=== PATIENT | male | born 1975 | race Caucasian/White ===

== ENCOUNTER 2018-06-21 17:02 | Emergency (ER) | payer BC ==
[2018-06-21] MEDS ORDERED: Benzonatate 100 MG Cap PO ONE (17:03)
[2018-06-21 19:12] VITALS: BP 132/74
--- NOTE | 2018-06-21 19:33 | EDM.PDOC ---
ED HPI GENERAL MEDICAL PROBLEM - General Chief Complaint: ENT Problem Stated Complaint: 105 TEMP Time Seen by Provider: 06/21/18 19:29 Source of Information: Reports: Patient, RN Notes Reviewed History Limitations: Reports: No Limitations - History of Present Illness INITIAL COMMENTS - FREE TEXT/NARRATIVE: fever since yesterday up to 105/ 106 relieved with tylenol and ibuprofen, cough , no sorethroat or ear pain, congested, no nausea or vomiting. Has not had flu shot this year. No other medical hx. No home medications. Generalized Pain Score (Numeric/FACES): 5 - Related Data Allergies Allergy/AdvReac Type Severity Reaction Status Date / Time No Known Allergies Allergy Verified 06/21/18 17:29 Home Meds: Home Meds . [No Known Home Meds] 06/21/18 [History] Past Medical History HEENT History: Reports: Impaired Vision Cardiovascular History: Reports: None Respiratory History: Reports: None Gastrointestinal History: Reports: Other (See Below) Other Gastrointestinal History: vomiting blood Genitourinary History: Reports: None Musculoskeletal History: Reports: Other (See Below) Other Musculoskeletal History: knee pain Neurological History: Reports: None Psychiatric History: Reports: None Endocrine/Metabolic History: Reports: None Hematologic History: Reports: None Immunologic History: Reports: None Oncologic (Cancer) History: Reports: None Dermatologic History: Reports: None - Infectious Disease History Infectious Disease History: Reports: None Social & Family History - Family History Family Medical History: Noncontributory - Tobacco Use Smoking Status *Q: Never Smoker Second Hand Smoke Exposure: No - Caffeine Use Caffeine Use: Reports: Coffee - Recreational Drug Use Recreational Drug Use: No ED ROS GENERAL - Review of Systems Review Of Systems: See Below Constitutional: Reports: Fever, Chills, Decreased Appetite HEENT: Reports: Throat Pain. Denies: Ear Pain, Rhinitis, Vertigo Respiratory: Reports: Cough, Sputum (green). Denies: Shortness of Breath Cardiovascular: Reports: No Symptoms GI/Abdominal: Reports: No Symptoms. Denies: Diarrhea, Nausea, Vomiting Musculoskeletal: Reports: No Symptoms Skin: Reports: No Symptoms Neurological: Reports: No Symptoms Psychiatric: Reports: No Symptoms ED EXAM, GENERAL - Physical Exam Exam: See Below Exam Limited By: Uncooperative General Appearance: Mild Distress, Obese Eye Exam: Bilateral Eye: EOMI, PERRL Ears: Normal External Exam, Hearing Grossly Normal, Normal TMs Nose: Normal Inspection Throat/Mouth: Normal Inspection, Normal Lips Head: Atraumatic, Normocephalic Neck: Normal Inspection Respiratory/Chest: No Respiratory Distress, Decreased Breath Sounds, Other ( ocassional cough, increased with deep breathing.) Cardiovascular: Normal Peripheral Pulses, Regular Rate, Rhythm, No Edema GI/Abdominal: Normal Bowel Sounds Back Exam: Normal Inspection, Full Range of Motion Extremities: Normal Inspection, Normal Range of Motion Neurological: Alert, Oriented, Normal Cognition Psychiatric: Normal Affect, Normal Mood Skin Exam: Warm, Dry, Intact, Diaphoretic Course - Vital Signs Last Recorded V/S: Last Vital Signs Temp 99.0 F 06/21/18 21:00 Pulse 108 H 06/21/18 19:10 Resp 18 06/21/18 19:10 BP 132/74 06/21/18 19:10 Pulse Ox 96 06/21/18 19:10 - Orders/Labs/Meds Orders: Active Orders 24 hr Category Date Time Status RT Aerosol Therapy [RC] ASDIRECTED Care 06/21/18 19:49 Active CULTURE BLOOD [BC] Stat Lab 06/21/18 19:47 Received CULTURE STREP A CONFIRMATION [] Stat Lab 06/21/18 17:28 Results STREP SCRN A RAPID W CULT CONF [] Stat Lab 06/21/18 17:28 Results Labs: Laboratory Tests 06/21/18 06/21/18 06/21/18 Range/Units 19:47 19:47 19:47 WBC 17.2 H (5.0-10.0) 10^3/uL RBC 5.25 (4.6-6.2) 10^6/uL Hgb 15.6 (14.0-18.0) g/dL Hct 46.0 (40.0-54.0) % MCV 87.6 (80-100) fL MCH 29.7 (27.0-34.0) pg MCHC 33.9 (33.0-35.0) g/dL Plt Count 238 (150-450) 10^3/uL Neut % (Auto) 82.6 H (42.2-75.2) % Lymph % (Auto) 10.3 L (20.5-50.1) % [place] % (Auto) 6.7 (2-8) % Eos % (Auto) 0.2 L (1.0-3.0) % Baso % (Auto) 0.2 (0.0-1.0) % Sodium 132 L (135-145) mmol/L Potassium 3.6 (3.6-5.0) mmol/L Chloride 96 L (101-111) mmol/L Carbon Dioxide 22.0 (21.0-31.0) mmol/L Anion Gap 17.6 BUN 9 (7-18) mg/dL Creatinine 1.0 (0.6-1.3) mg/dL Est Cr Clr Drug Dosing 102.39 mL/min Estimated GFR (MDRD) > 60 BUN/Creatinine Ratio 9.00 Glucose 212 H (74-105) mg/dL Lactic Acid 1.4 (0.5-2.2) mmol/L Calcium 8.8 (8.4-10.2) mg/dl Total Bilirubin 0.9 (0.2-1.0) mg/dL AST 22 (10-42) IU/L ALT 28 (10-60) IU/L Alkaline Phosphatase 65 (42-121) IU/L Total Protein 8.2 (6.7-8.2) g/dl Albumin 3.6 (3.2-5.5) g/dl Globulin 4.6 Albumin/Globulin Ratio 0.78 Meds: Medications Discontinued Medications Generic Name Dose Route Start Last Admin Trade Name Freq PRN Reason Stop Dose Admin Albuterol/Ipratropium 3 ml 06/21/18 19:48 06/21/18 19:54 Duoneb 3.0-0.5 Mg/3 Ml NEB 06/21/18 19:49 3 ml ONETIME ONE Administration Benzonatate Confirm 06/21/18 20:59 06/21/18 21:20 Tessalon Perles Administered 06/21/18 21:00 Not Given Dose 400 mg .ROUTE .STK-MED ONE Ceftriaxone Sodium 1 gm/ 0 gm 06/21/18 20:50 06/21/18 20:58 Lidocaine HCl 2.1 ml IM 06/21/18 20:51 2.1 inj ONETIME ONE Administration Ibuprofen 600 mg 06/21/18 20:23 06/21/18 20:27 Motrin PO 06/21/18 20:24 600 mg ONETIME ONE Administration Levofloxacin 500 mg 06/21/18 20:48 06/21/18 20:58 Levaquin PO 06/21/18 20:49 500 mg ONETIME ONE Administration Departure - Departure Time of Disposition: 20:52 Disposition: Home, Self-Care 01 Condition: Good Clinical Impression: Influenza B Pneumonia Qualifiers: Pneumonia type: due to unspecified organism Laterality: right Lung location: upper lobe of lung Qualified Code(s): J18.1 - Lobar pneumonia, unspecified organism - Discharge Information *PRESCRIPTION DRUG MONITORING PROGRAM REVIEWED*: Not Applicable *COPY OF PRESCRIPTION DRUG MONITORING REPORT IN PATIENT POLLY: Not Applicable Instructions: Influenza, Adult, Community-Acquired Pneumonia, Adult, Easy-to- Read Forms: ED Department Discharge Additional Instructions: levaquin 500mg daily robitussin or muccinex per package to loosen secretion tesselon perles 200mg every 8 hours as needed for cough hydrate tylenol or ibuprofen every 4 hours as needed for fever/ discomfort recheck chest xray one month to ensure clearing of pneumonia urgent follow up if fever uncontrolled or difficulty breathing - My Orders Last 24 Hours: My Active Orders 06/21/18 19:47 CULTURE BLOOD [BC] Stat 06/21/18 19:49 RT Aerosol Therapy [RC] ASDIRECTED - Assessment/Plan Last 24 Hours: My Active Orders 06/21/18 19:47 CULTURE BLOOD [BC] Stat 06/21/18 19:49 RT Aerosol Therapy [RC] ASDIRECTED
[2018-06-21] MEDS ORDERED: Albuterol/Ipratropium 3.0-0.5 MG/3 ML Neb Soln NEB ONE (19:48)
[2018-06-21 20:21] LABS: ANION GAP 17.6; CHLORIDE,CL 96 mmol/L (101-111); SODIUM,NA 132 mmol/L (135-145)
[2018-06-21] MEDS ORDERED: Ibuprofen 600 MG Tab PO ONE (20:23)
[2018-06-21] MEDS ORDERED: Levofloxacin 500 MG Tab PO ONE (20:48)
[2018-06-21] MEDS ORDERED: cefTRIAXone 1 GM, Lidocaine 1% 2.1 ML IM ONE ×2 (20:50)
[2018-06-21] MEDS ORDERED: Benzonatate 100 MG Cap ONE (20:59)
== END 2018-06-21 21:24 | disposition home or self-care (01) ==
LOC: DL.ED 17:02
DX: J10.08 Influenza due to other identified influenza virus with other specified pneumonia (principal); J18.1 Lobar pneumonia, unspecified organism
CPT/HCPCS: 36415; 71046; 80053; 83605; 85025; 87040; 87081; 87430; 87804; 96372; 99284; A9270; J0696; J2001; J7620-GY

== ENCOUNTER 2022-02-12 13:25 | Emergency (ER) | payer OTHER ==
[2022-02-12 13:41] VITALS: BP 142/92; PULSE 123
[2022-02-12 14:26] LABS: ANION GAP 19.8 mEq/L (7-13)
[2022-02-12] MEDS ORDERED: Iopamidol 612 MG/ML 100 ML Bottle IVPUSH ONE (14:43)
[2022-02-12] MEDS ORDERED: Sodium Chloride 0.9% 10 ML Syringe FLUSH PRN (14:45)
[2022-02-12] MEDS ORDERED: HYDROmorphone 0.5 MG/0.5 ML Syringe IVPUSH ONE (16:24)
[2022-02-12] MEDS ORDERED: Ondansetron 4 MG/2 ML SDV IVPUSH ONE (16:24)
[2022-02-12] MEDS ORDERED: Piperacillin/Tazobactam 4.5 GM in Sodium Chloride 0.9% 100 ML IV ONE (20:01)
[2022-02-12] MEDS ORDERED: HYDROmorphone 1 MG/ML Syringe ONE (20:50)
[2022-02-12] MEDS ORDERED: HYDROmorphone 1 MG/ML Syringe IVPUSH ONE (20:50)
== END 2022-02-12 21:06 ==
LOC: DL.ED 13:25
DX: K66.1 Hemoperitoneum (principal); K68.9 Other disorders of retroperitoneum
CPT/HCPCS: 36415; 74177; 80053; 81001; 83605; 85025; 87040; 94762; 96365; 96375; 96376; 99285; J1170; J2405; J2543; J3490; Q9967

== ENCOUNTER 2022-04-09 08:00 | Emergency (ER) | payer OTHER ==
[2022-04-09 08:23] VITALS: BP 130/83; PULSE 111
[2022-04-09 08:56] LABS: ANION GAP 16.6 mEq/L (7-13)
[2022-04-09] MEDS ORDERED: Sodium Chloride 0.9% 1,000 ML IV ONE (09:09)
[2022-04-09 10:21] LABS: CORONAVIRUS COVID-19 NAA NEGATIVE (NEGATIVE); RESPIRATORY SYNCYTIAL VIR NAA NEGATIVE (NEGATIVE)
[2022-04-09] MEDS ORDERED: Ondansetron 4 MG/2 ML SDV IVPUSH ONE (15:23)
[2022-04-09] MEDS ORDERED: HYDROmorphone 0.5 MG/0.5 ML Syringe IVPUSH ONE (15:23)
== END 2022-04-09 15:52 | disposition home or self-care (01) ==
LOC: DL.ED 08:00
DX: I82.403 Acute embolism and thrombosis of unspecified deep veins of lower extremity, bilateral (principal); Z79.899 Other long term (current) drug therapy; Z20.822 Contact with and (suspected) exposure to COVID-19
CPT/HCPCS: 0241U; 36415; 80053; 82947; 83605; 83880; 85025; 85379; 85610; 85651; 86140; 87040; 93970; 96361; 96374; 96375; 99285; J1170; J2405; J7030

== ENCOUNTER 2023-05-23 15:53 | Emergency (ER) | payer OTHER ==
[2023-05-23 16:20] VITALS: BP 135/85; PULSE 71
[2023-05-23] MEDS: Sodium Chloride 0.9% 1,000 ML IV ONE (16:53)
[2023-05-23] MEDS: Ondansetron 4 MG/2 ML SDV IVPUSH ONE (16:53)
[2023-05-23] MEDS: Sodium Chloride 0.9% 10 ML Syringe FLUSH PRN (16:53)
[2023-05-23 16:58] LABS: BASOPHILS PERCENT AUTO 0.2 % (0.0-1.0); EOSINOPHILS PERCENT AUTO 0.5 % (1.0-3.0); HEMATOCRIT 46.1 % (40.0-54.0); HEMOGLOBIN 15.5 g/dL (14.0-18.0); LYMPHOCYTES PERCENT AUTO 12.1 % (20.5-50.1); MEAN CORPUSCULAR HGB CONC 33.6 g/dL (33.0-35.0); MEAN CORPUSCULAR VOLUME 89.2 fL (80-100); MONOCYTES PERCENT AUTO 5.3 % (2-8); NEUTROPHILS PERCENT AUTO 81.9 % (42.2-75.2); PLATELET COUNT,PLT 167 10^3/uL (150-450); RED BLOOD CELL COUNT 5.17 10^6/uL (4.6-6.2); WHITE BLOOD CELL COUNT,WBC 10.2 10^3/uL (5.0-10.0)
[2023-05-23 17:11] LABS: A/G RATIO 1.1; ANION GAP 13.5 mEq/L (7-13); BILIRUBIN TOTAL 0.7 mg/dL (0.2-1.0); BUN/CREATININE RATIO 19.8 (No establ ref range); CALCIUM 9.2 mg/dL (8.5-10.1); CREATININE 0.86 mg/dL (0.70-1.30); EST CRCL DRUG DOSING (CG) 110.66 mL/min; MAGNESIUM 2.1 mg/dL (1.8-2.4); POTASSIUM,K 4.5 mmol/L (3.5-5.1); PROTEIN TOTAL,TP 7.7 g/dL (6.4-8.2)
[2023-05-23 17:31] LABS: CORONAVIRUS COVID-19 NAA NEGATIVE (NEGATIVE); INFLUENZA A NAA NEGATIVE (NEGATIVE); INFLUENZA B NAA NEGATIVE (NEGATIVE)
[2023-05-23 18:45] LABS: APPEARANCE,URINE CLEAR (CLEAR); BILIRUBIN,URINE NEGATIVE (NEGATIVE); COLOR,URINE YELLOW (YELLOW); GLUCOSE,URINE NEGATIVE (NEGATIVE); KETONES,URINE NEGATIVE (NEGATIVE); LEUKOCYTE ESTERASE,URINE NEGATIVE (NEGATIVE); NITRITE,URINE NEGATIVE (NEGATIVE); OCCULT BLOOD,URINE NEGATIVE (NEGATIVE); PH,URINE 6.5 (5.0-9.0); PROTEIN,URINE TRACE (NEGATIVE)
[2023-05-23] MEDS: Take Home: Ondansetron 4 MG Tab.DIS, 5 Tab Pack PO ONE (19:02)
[2023-05-23 19:51] LABS: BACTERIA,URINE RARE /HPF (0-FEW/HPF); EPITHELIAL CELLS,URINE RARE /HPF (NOT SEEN); MUCUS,URINE FEW /LPF (NOT SEEN); RBC,URINE 0-5 /HPF (0-5); WBC,URINE 0-5 /HPF (0-5/HPF)
== END 2023-05-23 19:11 | disposition home or self-care (01) ==
LOC: DL.ED 15:53
DX: K52.9 Noninfective gastroenteritis and colitis, unspecified (principal)
CPT/HCPCS: 0240U; 36415; 80053; 81001; 83735; 85025; 96361; 96374; 99283; 99284-25; J2405; J3490; J7030; Q0162

== ENCOUNTER 2024-11-01 21:34 | Emergency (ER) | payer BC, MEDICARE ==
[2024-11-01] MEDS ORDERED: Sodium Chloride 0.9% 10 ML Syringe FLUSH PRN (21:51)
[2024-11-01 22:05] LABS: BASOPHILS PERCENT AUTO 0.3 % (0.0-1.0); EOSINOPHILS PERCENT AUTO 0.7 % (1.0-3.0); LYMPHOCYTES PERCENT AUTO 10.1 % (20.5-50.1); MONOCYTES PERCENT AUTO 8.6 % (2-8); NEUTROPHILS PERCENT AUTO 80.3 % (42.2-75.2); PLATELET COUNT,PLT 162 10^3/uL (150-450); RED BLOOD CELL COUNT 4.87 10^6/uL (4.6-6.2); WHITE BLOOD CELL COUNT,WBC 7.0 10^3/uL (5.0-10.0)
[2024-11-01 22:16] LABS: APPEARANCE,URINE CLEAR (CLEAR); GLUCOSE,URINE NEGATIVE (NEGATIVE); OCCULT BLOOD,URINE TRACE-INTACT (NEGATIVE)
[2024-11-01 22:22] LABS: BLOOD UREA NITROGEN,BUN 17 mg/dL (7-18); CARBON DIOXIDE,CO2 35 mmol/L (21-32); CHLORIDE,CL 102 mmol/L (98-107); CREATININE 1.03 mg/dL (0.70-1.30); EST CRCL DRUG DOSING (CG) 80.57 mL/min; GLUCOSE RANDOM 98 mg/dL (70-99); POTASSIUM,K 4.1 mmol/L (3.5-5.1); SODIUM,NA 140 mmol/L (136-145)
[2024-11-01 22:26] LABS: ESTIMATED GFR 88 mL/min (>=60)
[2024-11-01 22:30] LABS: EPITHELIAL CELLS,URINE FEW /HPF (NOT SEEN)
[2024-11-01 22:56] LABS: ALANINE AMINOTRANSFERASE,ALT 593.0 U/L (16-63); ASPARTATE AMNIOTRANSFERASE,AST 634.0 U/L (15-37); BILIRUBIN TOTAL 1.8 mg/dL (0.2-1.0)
[2024-11-01] MEDS: Iopamidol 612 MG/ML 100 ML Bottle IVPUSH ONE (23:00)
[2024-11-02 00:28] LABS: LACTIC ACID 1.3 mmol/L (0.4-2.0)
[2024-11-02 02:52] VITALS: BP 96/64; PULSE 60
== END 2024-11-02 02:42 ==
LOC: DL.ED 21:34
DX: K81.0 Acute cholecystitis (principal); I10 Essential (primary) hypertension; Z79.4 Long term (current) use of insulin; Z79.899 Other long term (current) drug therapy; Z86.73 Personal history of transient ischemic attack (TIA), and cerebral infarction without residual deficits
CPT/HCPCS: 36415; 74177; 80048; 81001; 82247; 83605; 83690; 83735; 84075; 84450; 84460; 84484; 85025; 86140; 87086; 87088; 87186; 93010; 96365; 99284; 99285; C1758; J2543; J7030; Q9967

== ENCOUNTER 2024-11-12 21:25 | Emergency (ER) | payer MEDICARE, BC ==
[2024-11-12 22:04] LABS: BASOPHILS PERCENT AUTO 0.5 % (0.0-1.0); EOSINOPHILS PERCENT AUTO 0.7 % (1.0-3.0); LYMPHOCYTES PERCENT AUTO 16.5 % (20.5-50.1); MONOCYTES PERCENT AUTO 6.9 % (2-8); NEUTROPHILS PERCENT AUTO 75.4 % (42.2-75.2); PLATELET COUNT,PLT 163 10^3/uL (150-450); RED BLOOD CELL COUNT 4.42 10^6/uL (4.6-6.2); WHITE BLOOD CELL COUNT,WBC 5.5 10^3/uL (5.0-10.0)
[2024-11-12 22:26] LABS: A/G RATIO 0.9; ALANINE AMINOTRANSFERASE,ALT 41.0 U/L (16-63); ASPARTATE AMNIOTRANSFERASE,AST 15.0 U/L (15-37); BILIRUBIN TOTAL 0.8 mg/dL (0.2-1.0); BLOOD UREA NITROGEN,BUN 16.0 mg/dL (7-18); CARBON DIOXIDE,CO2 32.0 mmol/L (21-32); CHLORIDE,CL 102.0 mmol/L (98-107); CREATININE 0.83 mg/dL (0.70-1.30); EST CRCL DRUG DOSING (CG) 97.95 mL/min; GLUCOSE RANDOM 89.0 mg/dL (70-99); LACTIC ACID 1.4 mmol/L (0.4-2.0); POTASSIUM,K 4.8 mmol/L (3.5-5.1); PROTEIN TOTAL,TP 7.8 g/dL (6.4-8.2); SODIUM,NA 140.0 mmol/L (136-145)
[2024-11-12 22:27] LABS: ESTIMATED GFR 106.0 mL/min (>=60)
[2024-11-12 23:53] LABS: APPEARANCE,URINE CLEAR (CLEAR); GLUCOSE,URINE NEGATIVE (NEGATIVE); OCCULT BLOOD,URINE TRACE-INTACT (NEGATIVE)
[2024-11-13 00:02] LABS: EPITHELIAL CELLS,URINE RARE /HPF (NOT SEEN)
[2024-11-13] MEDS: Iopamidol 612 MG/ML 100 ML Bottle IVPUSH ONE (01:15)
[2024-11-13] MEDS: WATER FOR INJECTION STERILE IV ONE ×2 (03:19→03:20)
[2024-11-13] MEDS: FACTOR IX COMPLEX HUMAN IV ONE ×2 (03:19→03:20)
[2024-11-13] MEDS: Factor IX Complex Human 1,500 UNIT ONE (03:21)
[2024-11-13 03:48] LABS: INR 1.1 (0.9-1.2); PTT,PARTIAL THROMBOPLSTIN TIME 28.1 SEC (22.0-34.0)
[2024-11-13 04:47] VITALS: BP 113/83; PULSE 55
== END 2024-11-13 04:29 ==
LOC: DL.ED 21:25
DX: T81.43XA Infection following a procedure, organ and space surgical site, initial encounter (principal); M48.061 Spinal stenosis, lumbar region without neurogenic claudication; I10 Essential (primary) hypertension; Z86.73 Personal history of transient ischemic attack (TIA), and cerebral infarction without residual deficits; Z79.4 Long term (current) use of insulin; Z79.899 Other long term (current) drug therapy; Z90.49 Acquired absence of other specified parts of digestive tract
CPT/HCPCS: 36415; 70450; 71045; 72132; 80053; 81001; 83605; 83690; 83735; 84484; 85025; 85610; 85651; 85730; 86140; 87040; 93005; 96361; 96365; 96375; 99285; C1758; J2543; J7030; J7168; Q9967; 93010; 99284